=== PATIENT | male | born 1945 | race African-American/Black ===

== ENCOUNTER 2017-07-16 00:26 | Inpatient (IN) | payer MEDICARE, OTHER ==
[~2017-07-16] VITALS: Ht 172.7 cm; Wt 73.5 kg
[2017-07-16] VITALS (15 sets, daily range): BP systolic 151–197; BP diastolic 70–153
[~2017-07-16 00:26] MED LIST: ACHECK TEST; AMLO10TA80 PO; HYDR-3992 PO; INSNOV SUBCUT; LISI-604 PO; METF500T4 PO; RISP1TAB26 PO; SERT25TA74 PO; SIMV10TA6 PO; VIAG100 PO
[2017-07-16] MEDS ORDERED: IPRATROPIUM BROMIDE (0.02%) 0.5MG/2.5ML NEB HHN STA (00:44)
[2017-07-16] MEDS ORDERED: ALBUTEROL (0.083%) 2.5MG/3ML NEB HHN STA (00:44)
[2017-07-16] MEDS ORDERED: MAGNESIUM 2 G PREMIX 50 ML IV STA (00:44)
[2017-07-16] MEDS ORDERED: METHYLPREDNISOLONE SOD SUCC 125 MG/2 ML VIAL IV STA (00:44)
[2017-07-16 01:13] LABS: BASOPHILS % 0.5 % (0.0-2.0); EOSINOPHILS % 3.9 % (0.0-5.0); HEMATOCRIT. 42.3 % (42.0-52.0); HEMOGLOBIN. 13.6 g/dL (14.0-18.0); LYMPHOCYTES % 35.5 % (20.0-50.0); MEAN CORPUSCULAR HEMOGLOBIN 26.8 pg (28.0-32.0); MEAN CORPUSCULAR VOLUME 83.6 fL (80.0-94.0); MEAN PLATELET VOLUME 9.8 fl (7.4-10.4); MONOCYTES % 7.6 % (2.0-8.0); NEUTROPHILS % 52.5 % (40.0-76.0); PLATELET 202 x1000/uL (130-400); RED BLOOD CELL COUNT 5.06 mill/uL (4.7-6.1); RED CELL DISTRIBUTION WIDTH 15.7 % (11.6-14.6)
[2017-07-16 01:15] LABS: PARTIAL THROMBOPLASTIN TIME 22.5 sec (23.4-31.0); PROTHROMBIN TIME 10.7 sec (9.4-11.6)
[2017-07-16 01:16] LABS: CHLORIDE 107 mEq/L (98-107); ETHANOL BLOOD < 10 mg/dL
[2017-07-16 01:22] LABS: TROPONIN I 0.11 ng/mL (0.00-0.04)
[2017-07-16 01:37] LABS: CLARITY URINE CLEAR (CLEAR); COLOR URINE YELLOW (YELLOW); KETONES URINE NEGATIVE (NEGATIVE); LEUKOCYTE ESTERASE URINE NEGATIVE (NEGATIVE); NITRITE URINE NEGATIVE (NEGATIVE); OCCULT BLOOD URINE 1+ (NEGATIVE); PROTEIN URINE 3+ (NEGATIVE); SPECIFIC GRAVITY URINE 1.012 (1.005-1.030); UROBILINOGEN URINE 0.2 E.U./dL (0.2-1.0)
[2017-07-16] MEDS ORDERED: HYDRALAZINE 20MG/ML VIAL IV ONE (01:45)
[2017-07-16] MEDS ORDERED: FUROSEMIDE 40MG/4ML VIAL IVP ONE (01:45)
[2017-07-16] MEDS ORDERED: LEVOFLOXACIN 500MG PREMIX 100 ML IV ONE (01:45)
[2017-07-16 01:53] LABS: *AMPHETAMINES SCREEN URINE NEGATIVE (NEGATIVE); *BARBITURATES SCREEN URINE NEGATIVE (NEGATIVE); *BENZODIAZEPINES SCREEN URINE NEGATIVE (NEGATIVE); *COCAINE SCREEN URINE PRESUMTIVE POSITIVE (NEGATIVE); CANNABINOID URINE SCREEN NEGATIVE (NEGATIVE); METHADONE URINE SCREEN NEGATIVE (NEGATIVE); OPIATES URINE SCREEN NEGATIVE (NEGATIVE); PHENCYCLIDINE URINE SCREEN NEGATIVE (NEGATIVE)
[2017-07-16 01:59] LABS: BG BASE EXCESS -0.8 mmol/L (-2.0-2.0); BG BILEVEL POS AIRWAY PRESSURE 15/5; BG CARBOXYHEMOGLOBIN 0.5 % (0.5-1.5); BG DEOXYHEMOGLOBIN 2.5 % (0.0-5.0); BG FRACTION INSPIRED OXYGEN 40; BG HCO3 ACT 24.3 mmol/L (22.0-26.0); BG METHEMOGLOBIN 0.3 % (0.0-1.5); BG OXYGEN SATURATION 97.5 % (92.0-98.5); BG OXYHEMOGLOBIN 96.7 % (94.0-97.0); BG PCO2 42.1 mmHg (35.0-45.0); BG SAMPLE SITE RIGHT RADIAL; BG TOTAL HEMOGLOBIN 12.5 g/dL (12.0-18.0); BG VENT MODE MASK - BIPAP; BG VENT RATE 16 set
[2017-07-16] MEDS ORDERED: DEXTROSE 50% WATER 50ML SYRINGE IV PRN (10:45)
[2017-07-16] MEDS ORDERED: IPRATROPIUM/ALBUTEROL 0.5-3(2.5)MG/3ML NEB HHN PRN (10:45)
[2017-07-16] MEDS: LOSARTAN POTASSIUM 100 MG TABLET PO SCH (11:49)
[2017-07-16] MEDS: BLOOD SUGAR DIAGNOSTIC STRIP TEST SCH ×3 (11:49→21:00)
[2017-07-16] MEDS: NICOTINE 7MG PATCH TD SCH (11:50)
[2017-07-16] MEDS: BUDESONIDE 0.5MG/2ML NEB HHN SCH ×2 (11:56→21:39)
[2017-07-16] MEDS: IPRATROPIUM/ALBUTEROL 0.5-3(2.5)MG/3ML NEB HHN SCH ×3 (11:56→21:39)
[2017-07-16] MEDS: INSULIN LISPRO 100 UNITS/ML SUBCUT SCH ×3 (11:56→21:00)
[2017-07-16] MEDS: FUROSEMIDE 40MG/4ML VIAL IVP SCH (12:12)
[2017-07-16] MEDS: CLONIDINE 0.1MG TABLET PO PRN (12:34)
[2017-07-16 13:20] LABS: TROPONIN I 0.15 ng/mL (0.00-0.04)
[2017-07-17] VITALS (11 sets, daily range): BP systolic 133–169; BP diastolic 74–107
[2017-07-17] MEDS: IPRATROPIUM/ALBUTEROL 0.5-3(2.5)MG/3ML NEB HHN SCH ×6 (01:30→20:21)
[2017-07-17] MEDS: BLOOD SUGAR DIAGNOSTIC STRIP TEST SCH ×4 (06:01→21:00)
[2017-07-17] MEDS: INSULIN LISPRO 100 UNITS/ML SUBCUT SCH ×4 (07:01→21:00)
[2017-07-17 07:26] LABS: CHLORIDE 106 mEq/L (98-107)
[2017-07-17] MEDS: FUROSEMIDE 40MG/4ML VIAL IVP SCH (08:22)
[2017-07-17] MEDS: LOSARTAN POTASSIUM 100 MG TABLET PO SCH (08:22)
[2017-07-17] MEDS: NICOTINE 7MG PATCH TD SCH (08:23)
[2017-07-17] MEDS: BUDESONIDE 0.5MG/2ML NEB HHN SCH ×2 (09:11→20:20)
[2017-07-17] MEDS: POTASSIUM CHLORIDE 20MEQ TABLET SR PO SCH (09:42)
[2017-07-17] MEDS: CLONIDINE 0.1MG TABLET PO PRN (16:56)
[2017-07-17] MEDS ORDERED: ENOXAPARIN 40MG/0.4ML SYR SUBCUT SCH (21:00)
[2017-07-17] MEDS: DILTIAZEM HCL 30MG TABLET PO SCH (22:41)
[2017-07-18] VITALS: BP 147/84
[2017-07-18] MEDS: IPRATROPIUM/ALBUTEROL 0.5-3(2.5)MG/3ML NEB HHN SCH ×4 (00:29→12:44)
[2017-07-18 06:00] VITALS: BP 152/89
[2017-07-18] MEDS: DILTIAZEM HCL 30MG TABLET PO SCH (06:35)
[2017-07-18] MEDS: BLOOD SUGAR DIAGNOSTIC STRIP TEST SCH ×2 (06:44→12:03)
[2017-07-18] MEDS: INSULIN LISPRO 100 UNITS/ML SUBCUT SCH ×2 (06:44→12:03)
[2017-07-18 08:00] VITALS: BP 162/96
[2017-07-18] MEDS: LOSARTAN POTASSIUM 100 MG TABLET PO SCH (08:39)
[2017-07-18] MEDS: FUROSEMIDE 40MG/4ML VIAL IVP SCH (08:39)
[2017-07-18] MEDS: POTASSIUM CHLORIDE 20MEQ TABLET SR PO SCH (08:39)
[2017-07-18] MEDS: BUDESONIDE 0.5MG/2ML NEB HHN SCH (08:51)
[2017-07-18 12:00] VITALS: BP 139/98
[2017-07-18] MEDS: NICOTINE 7MG PATCH TD SCH (12:07)
[2017-07-18 13:43] LABS: CHLORIDE 106 mEq/L (98-107)
[2017-07-18 14:00] VITALS: BP 158/95
[2017-07-18] MEDS ORDERED: DILTIAZEM HCL 60MG TABLET PO SCH (14:00)
[2017-07-18 14:24] VITALS: BP 149/89
== END 2017-07-18 15:23 | disposition home or self-care (01) | DRG 917 ==
LOC: ER 00:26 → 3WST 01:46 → EDBEDREQ 01:50 → ENRESERV 07:12 → CANRESERV 07:12 → ENRESERV 07:59
PROVIDERS: ADMIT Internal Medicine; ATTEND Internal Medicine
PROC: 5A09357 Assistance with Respiratory Ventilation, Less than 24 Consecutive Hours, Continuous Positive Airway Pressure (ICD-10-PCS; principal; 2017-07-16)
DX: T40.5X1A Poisoning by cocaine, accidental (unintentional), initial encounter (principal); J96.00 Acute respiratory failure, unspecified whether with hypoxia or hypercapnia; I50.43 Acute on chronic combined systolic (congestive) and diastolic (congestive) heart failure; J44.1 Chronic obstructive pulmonary disease with (acute) exacerbation; I11.0 Hypertensive heart disease with heart failure; I27.20 Pulmonary hypertension, unspecified; E87.6 Hypokalemia; F14.10 Cocaine abuse, uncomplicated; E11.9 Type 2 diabetes mellitus without complications; F41.9 Anxiety disorder, unspecified; F17.210 Nicotine dependence, cigarettes, uncomplicated; Z60.2 Problems related to living alone; F19.10 Other psychoactive substance abuse, uncomplicated; B19.20 Unspecified viral hepatitis C without hepatic coma; R94.31 Abnormal electrocardiogram [ECG] [EKG]; N40.1 Benign prostatic hyperplasia with lower urinary tract symptoms; R33.8 Other retention of urine; Z79.899 Other long term (current) drug therapy; Z79.4 Long term (current) use of insulin; Z71.6 Tobacco abuse counseling; Z90.79 Acquired absence of other genital organ(s)
CPT/HCPCS: 36415; 36600; 71045; 80048; 80053; 80305; 81003; 82375; 82805; 82962; 83605; 83690; 83880; 84443; 84484; 85025; 85610; 85730; 87040; 87077; 87086; 87186; 87804; 93005; 93306; 94640; 94644; 94660; 96365; 96366; 96367; 96375; 99291; G0482; J0360; J1650; J1940; J1956; J2930; J3475; J7611; J7620; J7626

== ENCOUNTER 2017-07-23 19:35 | Inpatient (IN) | payer MEDICARE, OTHER ==
[~2017-07-23] VITALS: Ht 172.7 cm; Wt 73.9 kg
[2017-07-23] MEDS ORDERED: NITROGLYCERIN OINT 1GM/INCH UDPKT TD ONE (20:15)
[2017-07-23] MEDS ORDERED: NITROGLYCERIN 0.4MG TABLET SL SL PRN (20:15)
[2017-07-23 21:01] LABS: BASOPHILS % 0.3 % (0.0-2.0); EOSINOPHILS % 2.9 % (0.0-5.0); HEMATOCRIT. 31.6 % (42.0-52.0); HEMOGLOBIN. 10.4 g/dL (14.0-18.0); MEAN CORPUSCULAR HEMOGLOBIN 27.7 pg (28.0-32.0); MEAN CORPUSCULAR VOLUME 84.3 fL (80.0-94.0); MONOCYTES % 9.1 % (2.0-8.0); NEUTROPHILS % 75.7 % (40.0-76.0); PLATELET 152 x1000/uL (130-400); RED BLOOD CELL COUNT 3.75 mill/uL (4.7-6.1); RED CELL DISTRIBUTION WIDTH 15.5 % (11.6-14.6)
[2017-07-23 21:05] LABS: INR 1.1
[2017-07-23 21:08] LABS: CHLORIDE 110 mEq/L (98-107)
[2017-07-24] VITALS (10 sets, daily range): BP systolic 127–176; BP diastolic 76–110
[2017-07-24 04:06] LABS: *AMPHETAMINES SCREEN URINE NEGATIVE (NEGATIVE); *BARBITURATES SCREEN URINE NEGATIVE (NEGATIVE); *COCAINE SCREEN URINE PRESUMTIVE POSITIVE (NEGATIVE); METHADONE URINE SCREEN NEGATIVE (NEGATIVE); OPIATES URINE SCREEN NEGATIVE (NEGATIVE); PHENCYCLIDINE URINE SCREEN NEGATIVE (NEGATIVE)
[2017-07-24 05:09] LABS: *BENZODIAZEPINES SCREEN URINE NEGATIVE (NEGATIVE); CANNABINOID URINE SCREEN NEGATIVE (NEGATIVE)
[2017-07-24 09:00] LABS: BG BASE EXCESS -1.4 mmol/L (-2.0-2.0); BG BILEVEL POS AIRWAY PRESSURE 15/8; BG CARBOXYHEMOGLOBIN 0.3 % (0.5-1.5); BG DEOXYHEMOGLOBIN 1.2 % (0.0-5.0); BG FRACTION INSPIRED OXYGEN 40; BG HCO3 ACT 20.4 mmol/L (22.0-26.0); BG METHEMOGLOBIN 0.7 % (0.0-1.5); BG OXYGEN SATURATION 98.8 % (92.0-98.5); BG OXYHEMOGLOBIN 97.8 % (94.0-97.0); BG PCO2 25.8 mmHg (35.0-45.0); BG PH 7.515 (7.350-7.450); BG PO2 157.7 mmHg (75.0-100.0); BG SAMPLE SITE RIGHT RADIAL; BG TOTAL HEMOGLOBIN 11.4 g/dL (12.0-18.0); BG VENT MODE MASK - BIPAP
[2017-07-24] MEDS: CARVEDILOL 3.125 MG TABLET PO SCH ×2 (09:00→20:28)
[2017-07-24] MEDS: LOSARTAN POTASSIUM 50 MG TABLET PO SCH (09:08)
[2017-07-24] MEDS: FUROSEMIDE 40MG/4ML VIAL IVP SCH (09:08)
[2017-07-24] MEDS: ASPIRIN 81MG TABLET PO SCH (09:08)
[2017-07-24] MEDS: AMLODIPINE 10MG TABLET PO SCH (09:08)
[2017-07-24] MEDS: ENOXAPARIN 40MG/0.4ML SYR SUBCUT SCH (09:09)
[2017-07-24] MEDS ORDERED: IPRATROPIUM/ALBUTEROL 0.5-3(2.5)MG/3ML NEB HHN PRN (11:15)
[2017-07-24] MEDS ORDERED: CLONIDINE 0.1MG TABLET PO PRN (11:15)
[2017-07-24] MEDS: NICOTINE 21MG PATCH TD SCH (12:17)
[2017-07-24] MEDS: SILDENAFIL CITRATE 20MG TABLET PO SCH ×2 (14:01→21:36)
[2017-07-24 15:35] LABS: CREATINE KINASE MB FRACTION 1.8 ng/mL (0.5-3.6)
[2017-07-24] MEDS: IPRATROPIUM/ALBUTEROL 0.5-3(2.5)MG/3ML NEB HHN SCH ×2 (17:21→20:02)
[2017-07-24] MEDS: BUDESONIDE 0.5MG/2ML NEB HHN SCH (20:02)
[2017-07-24 23:31] LABS: CREATINE KINASE MB FRACTION 1.5 ng/mL (0.5-3.6)
[2017-07-25] VITALS (12 sets, daily range): BP systolic 127–150; BP diastolic 73–90
[2017-07-25] MEDS: BUDESONIDE 0.5MG/2ML NEB HHN SCH ×3 (00:02→20:34)
[2017-07-25] MEDS: IPRATROPIUM/ALBUTEROL 0.5-3(2.5)MG/3ML NEB HHN SCH ×3 (01:11→20:34)
[2017-07-25] MEDS: SILDENAFIL CITRATE 20MG TABLET PO SCH ×3 (06:28→21:22)
[2017-07-25 07:51] LABS: BASOPHILS % 0.2 % (0.0-2.0); EOSINOPHILS % 5.6 % (0.0-5.0); HEMATOCRIT. 31.3 % (42.0-52.0); HEMOGLOBIN. 10.6 g/dL (14.0-18.0); LYMPHOCYTES % 17.6 % (20.0-50.0); MEAN CORPUSCULAR HEMOGLOBIN 28.1 pg (28.0-32.0); MEAN CORPUSCULAR VOLUME 83.1 fL (80.0-94.0); MEAN PLATELET VOLUME 10.3 fl (7.4-10.4); MONOCYTES % 12.2 % (2.0-8.0); NEUTROPHILS % 64.4 % (40.0-76.0); PLATELET 157 x1000/uL (130-400); RED BLOOD CELL COUNT 3.77 mill/uL (4.7-6.1); RED CELL DISTRIBUTION WIDTH 15.8 % (11.6-14.6)
[2017-07-25] MEDS: ASPIRIN 81MG TABLET PO SCH (08:30)
[2017-07-25] MEDS: LOSARTAN POTASSIUM 50 MG TABLET PO SCH (08:30)
[2017-07-25] MEDS: FUROSEMIDE 40MG/4ML VIAL IVP SCH (08:30)
[2017-07-25] MEDS: AMLODIPINE 10MG TABLET PO SCH (08:30)
[2017-07-25] MEDS: ENOXAPARIN 40MG/0.4ML SYR SUBCUT SCH (08:30)
[2017-07-25] MEDS: CARVEDILOL 3.125 MG TABLET PO SCH ×2 (08:31→21:23)
[2017-07-25] MEDS: NICOTINE 21MG PATCH TD SCH (08:31)
[2017-07-25 08:33] LABS: CHLORIDE 107 mEq/L (98-107)
[2017-07-26] VITALS (12 sets, daily range): BP systolic 104–160; BP diastolic 32–100
[2017-07-26] MEDS: IPRATROPIUM/ALBUTEROL 0.5-3(2.5)MG/3ML NEB HHN SCH ×3 (00:05→12:48)
[2017-07-26] MEDS: SILDENAFIL CITRATE 20MG TABLET PO SCH ×2 (05:39→14:41)
[2017-07-26] MEDS: BUDESONIDE 0.5MG/2ML NEB HHN SCH (08:05)
[2017-07-26] MEDS: ENOXAPARIN 40MG/0.4ML SYR SUBCUT SCH (08:34)
[2017-07-26] MEDS: LOSARTAN POTASSIUM 50 MG TABLET PO SCH (08:34)
[2017-07-26] MEDS: FUROSEMIDE 40MG/4ML VIAL IVP SCH (08:34)
[2017-07-26] MEDS: NICOTINE 21MG PATCH TD SCH (08:34)
[2017-07-26] MEDS: AMLODIPINE 10MG TABLET PO SCH (08:34)
[2017-07-26] MEDS: CARVEDILOL 3.125 MG TABLET PO SCH (08:35)
[2017-07-26] MEDS: ASPIRIN 81MG TABLET PO SCH (08:35)
== END 2017-07-26 19:10 | disposition home or self-care (01) | DRG 291 ==
LOC: ER 20:03 → 5EST 23:43 → ENRESERV 23:51
PROVIDERS: ADMIT Hospitalist; ATTEND Hospitalist
PROC: 5A09357 Assistance with Respiratory Ventilation, Less than 24 Consecutive Hours, Continuous Positive Airway Pressure (ICD-10-PCS; principal; 2017-07-23)
DX: I11.0 Hypertensive heart disease with heart failure (principal); J96.00 Acute respiratory failure, unspecified whether with hypoxia or hypercapnia; E44.0 Moderate protein-calorie malnutrition; E87.1 Hypo-osmolality and hyponatremia; E11.9 Type 2 diabetes mellitus without complications; D64.9 Anemia, unspecified; I16.1 Hypertensive emergency; I50.43 Acute on chronic combined systolic (congestive) and diastolic (congestive) heart failure; I27.20 Pulmonary hypertension, unspecified; E87.6 Hypokalemia; B19.20 Unspecified viral hepatitis C without hepatic coma; E78.00 Pure hypercholesterolemia, unspecified; F14.10 Cocaine abuse, uncomplicated; F17.210 Nicotine dependence, cigarettes, uncomplicated; I25.10 Atherosclerotic heart disease of native coronary artery without angina pectoris; N40.1 Benign prostatic hyperplasia with lower urinary tract symptoms; R33.8 Other retention of urine; Z91.14 Patient's other noncompliance with medication regimen; Z68.24 Body mass index [BMI] 24.0-24.9, adult
CPT/HCPCS: 36415; 36600; 71045; 80048; 80053; 80305; 82375; 82550; 82553; 82805; 82962; 83880; 84484; 85025; 85610; 93005; 93970; 94640; 94660; 94664; 97162; 99291; J1650; J1940; J7620; J7626

== ENCOUNTER 2018-05-21 01:52 | Inpatient (IN) | payer MEDICARE, OTHER ==
[~2018-05-21] VITALS: Ht 188 cm; Wt 74.1 kg
[~2018-05-21 01:52] MED LIST changes: +ATOR20TA65 MT; +BUPR100T13 PO; +CARV3.1242 MT; +CHLO25TA2 MT; +LOSA50TA20 MT; +METF-414 PO; -METF500T4 PO
[2018-05-21] MEDS ORDERED: FUROSEMIDE 40MG/4ML VIAL IVP ONE (02:45)
[2018-05-21 03:02] LABS: BASOPHILS % 0.6 % (0.0-2.0); EOSINOPHILS % 4.3 % (0.0-5.0); LYMPHOCYTES % 18.1 % (20.0-50.0); MEAN CORPUSCULAR VOLUME 86.5 fL (80.0-94.0); MEAN PLATELET VOLUME 9.8 fl (7.4-10.4); MONOCYTES % 9.7 % (2.0-8.0); NEUTROPHILS % 67.3 % (40.0-76.0); PLATELET 161 x1000/uL (130-400); RED CELL DISTRIBUTION WIDTH 13.7 % (11.6-14.6)
[2018-05-21 03:06] LABS: CHLORIDE 112 mEq/L (98-107)
[2018-05-21] MEDS ORDERED: ASPIRIN 325MG EC TABLET PO ONE (05:00)
[2018-05-21] MEDS ORDERED: NITROGLYCERIN 0.4MG TABLET SL SL ONE (05:00)
[2018-05-21] MEDS ORDERED: ENOXAPARIN 100MG/ML SYR SUBCUT SCH (06:15)
[2018-05-21] MEDS ORDERED: CLONIDINE 0.2MG TABLET PO ONE (08:30)
[2018-05-21] MEDS ORDERED: ZOLPIDEM TARTRATE 5MG TABLET PO PRN (12:00)
[2018-05-21] MEDS ORDERED: ONDANSETRON HCL 4MG/2ML INJ IV PRN (12:00)
[2018-05-21] MEDS ORDERED: DEXTROSE 50% WATER 50ML SYRINGE IV PRN (12:00)
[2018-05-21] MEDS ORDERED: KETOROLAC 15MG/ML VIAL IV PRN (12:00)
[2018-05-21] MEDS ORDERED: NA PHOS,M-B/NA PHOS,DI-BA ENEMA 118ML PR PRN (12:00)
[2018-05-21] MEDS ORDERED: MAGNESIUM/ALUMINUM HYDROXIDE/SIMETHICONE 30ML UDC PO PRN (12:00)
[2018-05-21] MEDS ORDERED: DOCUSATE SODIUM 100MG CAPSULE PO PRN (12:00)
[2018-05-21] MEDS ORDERED: GUAIFENESIN 200MG/10ML SUGAR FREE UDC PO PRN (12:00)
[2018-05-21] MEDS ORDERED: IPRATROPIUM/ALBUTEROL 0.5-3(2.5)MG/3ML NEB INH PRN (12:00)
[2018-05-21] MEDS ORDERED: TRAMADOL 50MG TABLET PO PRN (12:00)
[2018-05-21] MEDS ORDERED: ACETAMINOPHEN 325MG TABLET PO PRN (12:00)
[2018-05-21] MEDS: BLOOD SUGAR DIAGNOSTIC STRIP TEST SCH ×3 (12:08→21:44)
[2018-05-21 13:50] VITALS: BP 183/89
[2018-05-21 14:00] VITALS: BP 183/89
[2018-05-21 15:26] VITALS: BP 187/99
[2018-05-21] MEDS: AMLODIPINE 10MG TABLET PO SCH (17:04)
[2018-05-21] MEDS: HYDRALAZINE HCL 50MG TABLET PO SCH ×2 (17:04→21:43)
[2018-05-21] MEDS: INSULIN LISPRO 100 UNITS/ML SUBCUT SCH ×2 (17:14→21:00)
[2018-05-21 17:26] LABS: CREATINE KINASE MB FRACTION 1.5 ng/mL (0.5-3.6)
[2018-05-21 17:40] LABS: *AMPHETAMINES SCREEN URINE NEGATIVE (NEGATIVE); *BARBITURATES SCREEN URINE NEGATIVE (NEGATIVE); *BENZODIAZEPINES SCREEN URINE NEGATIVE (NEGATIVE); *COCAINE SCREEN URINE PRESUMTIVE POSITIVE (NEGATIVE)
[2018-05-21 17:41] LABS: CANNABINOID URINE SCREEN NEGATIVE (NEGATIVE); METHADONE URINE SCREEN NEGATIVE (NEGATIVE); OPIATES URINE SCREEN NEGATIVE (NEGATIVE); PHENCYCLIDINE URINE SCREEN NEGATIVE (NEGATIVE)
[2018-05-21 18:10] VITALS: BP 159/88
[2018-05-21 20:00] VITALS: BP 159/74
[2018-05-21] MEDS: FAMOTIDINE 20MG TABLET PO SCH (21:43)
[2018-05-21] MEDS: ATORVASTATIN CALCIUM 10MG TABLET PO SCH (21:43)
[2018-05-21] MEDS: LISINOPRIL 20MG TABLET PO SCH (21:44)
[2018-05-22] VITALS: BP 154/70
[2018-05-22 00:59] LABS: CREATINE KINASE MB FRACTION 1.3 ng/mL (0.5-3.6)
[2018-05-22 04:00] VITALS: BP 175/89
[2018-05-22] MEDS: HYDRALAZINE HCL 50MG TABLET PO SCH ×3 (06:21→22:00)
[2018-05-22] MEDS: BLOOD SUGAR DIAGNOSTIC STRIP TEST SCH ×4 (06:21→21:08)
[2018-05-22] MEDS: INSULIN LISPRO 100 UNITS/ML SUBCUT SCH ×4 (07:50→21:00)
[2018-05-22 08:00] VITALS: BP 148/82
[2018-05-22] MEDS: AMLODIPINE 10MG TABLET PO SCH ×2 (09:00→10:37)
[2018-05-22] MEDS: LISINOPRIL 20MG TABLET PO SCH ×3 (09:00→21:07)
[2018-05-22] MEDS: ENOXAPARIN 40MG/0.4ML SYR SUBCUT SCH (09:00)
[2018-05-22] MEDS: FAMOTIDINE 20MG TABLET PO SCH ×2 (09:19→21:07)
[2018-05-22] MEDS: ASPIRIN 325MG EC TABLET PO SCH (09:19)
[2018-05-22 12:04] VITALS: BP 108/72
[2018-05-22 15:56] VITALS: BP 165/82
[2018-05-22] MEDS: CLONIDINE 0.2MG TABLET PO PRN ×2 (17:04→17:09)
[2018-05-22 20:00] VITALS: BP 139/67
[2018-05-22] MEDS: ATORVASTATIN CALCIUM 10MG TABLET PO SCH (21:07)
[2018-05-23] VITALS: BP 140/68
[2018-05-23 04:00] VITALS: BP 121/82
[2018-05-23] MEDS: BLOOD SUGAR DIAGNOSTIC STRIP TEST SCH ×4 (06:46→21:00)
[2018-05-23] MEDS: HYDRALAZINE HCL 50MG TABLET PO SCH ×3 (06:46→22:02)
[2018-05-23] MEDS: INSULIN LISPRO 100 UNITS/ML SUBCUT SCH ×4 (07:50→21:00)
[2018-05-23 08:00] VITALS: BP 142/69
[2018-05-23] MEDS: FAMOTIDINE 20MG TABLET PO SCH ×2 (09:36→22:01)
[2018-05-23] MEDS: ASPIRIN 325MG EC TABLET PO SCH (09:37)
[2018-05-23] MEDS: LISINOPRIL 20MG TABLET PO SCH (09:37)
[2018-05-23] MEDS: AMLODIPINE 10MG TABLET PO SCH (09:37)
[2018-05-23] MEDS: ENOXAPARIN 40MG/0.4ML SYR SUBCUT SCH (09:37)
[2018-05-23 12:00] VITALS: BP 151/68
[2018-05-23] MEDS: LOSARTAN POTASSIUM 25 MG TABLET PO SCH ×2 (12:57→17:34)
[2018-05-23 16:00] VITALS: BP 166/87
[2018-05-23 20:31] VITALS: BP 167/68
[2018-05-23] MEDS: ATORVASTATIN CALCIUM 10MG TABLET PO SCH (22:01)
[2018-05-24] VITALS (7 sets, daily range): BP systolic 122–186; BP diastolic 68–90
[2018-05-24] MEDS: CLONIDINE 0.2MG TABLET PO PRN ×2 (04:30→12:08)
[2018-05-24] MEDS: HYDRALAZINE HCL 50MG TABLET PO SCH ×3 (06:54→20:33)
[2018-05-24] MEDS: BLOOD SUGAR DIAGNOSTIC STRIP TEST SCH ×4 (06:54→20:32)
[2018-05-24 07:03] LABS: BASOPHILS % 0.3 % (0.0-2.0); EOSINOPHILS % 6.4 % (0.0-5.0); HEMATOCRIT. 37.5 % (42.0-52.0); HEMOGLOBIN. 12.6 g/dL (14.0-18.0); LYMPHOCYTES % 22.4 % (20.0-50.0); MEAN CORPUSCULAR HEMOGLOBIN 29.1 pg (28.0-32.0); MEAN CORPUSCULAR VOLUME 86.3 fL (80.0-94.0); MEAN PLATELET VOLUME 9.9 fl (7.4-10.4); MONOCYTES % 13.4 % (2.0-8.0); NEUTROPHILS % 57.5 % (40.0-76.0); PLATELET 163 x1000/uL (130-400); RED BLOOD CELL COUNT 4.34 mill/uL (4.7-6.1); RED CELL DISTRIBUTION WIDTH 13.8 % (11.6-14.6)
[2018-05-24] MEDS: INSULIN LISPRO 100 UNITS/ML SUBCUT SCH ×4 (07:47→20:32)
[2018-05-24] MEDS: ASPIRIN 325MG EC TABLET PO SCH (09:05)
[2018-05-24] MEDS: AMLODIPINE 10MG TABLET PO SCH (09:05)
[2018-05-24] MEDS: FAMOTIDINE 20MG TABLET PO SCH ×2 (09:06→20:32)
[2018-05-24] MEDS: ENOXAPARIN 40MG/0.4ML SYR SUBCUT SCH (09:06)
[2018-05-24] MEDS: LOSARTAN POTASSIUM 25 MG TABLET PO SCH ×2 (09:06→17:05)
[2018-05-24] MEDS: ATORVASTATIN CALCIUM 10MG TABLET PO SCH (20:32)
== END 2018-05-24 21:57 | DRG 917 ==
LOC: ER 01:52 → 6WST 05:11 → ENRESERV 13:01
PROVIDERS: ADMIT Internal Medicine; ATTEND Internal Medicine
DX: T40.5X1A Poisoning by cocaine, accidental (unintentional), initial encounter (principal); I21.4 Non-ST elevation (NSTEMI) myocardial infarction; J96.00 Acute respiratory failure, unspecified whether with hypoxia or hypercapnia; E44.1 Mild protein-calorie malnutrition; J44.1 Chronic obstructive pulmonary disease with (acute) exacerbation; E87.0 Hyperosmolality and hypernatremia; I50.32 Chronic diastolic (congestive) heart failure; N17.9 Acute kidney failure, unspecified; F14.10 Cocaine abuse, uncomplicated; E11.9 Type 2 diabetes mellitus without complications; E78.00 Pure hypercholesterolemia, unspecified; D63.8 Anemia in other chronic diseases classified elsewhere; F17.210 Nicotine dependence, cigarettes, uncomplicated; I11.0 Hypertensive heart disease with heart failure; Z79.4 Long term (current) use of insulin; Z82.49 Family history of ischemic heart disease and other diseases of the circulatory system; Z91.11 Patient's noncompliance with dietary regimen; Z91.14 Patient's other noncompliance with medication regimen; Z79.84 Long term (current) use of oral hypoglycemic drugs; Z79.899 Other long term (current) drug therapy; Z71.6 Tobacco abuse counseling; Y92.89 Other specified places as the place of occurrence of the external cause; Z68.21 Body mass index [BMI] 21.0-21.9, adult
CPT/HCPCS: 36415; 71045; 80048; 80061; 80305; 82550; 82553; 82962; 83036; 83735; 83880; 84484; 85379; 93005; 93970; 97116; 97162; 97166; 99285; 99406; J1650; J1940